=== PATIENT | male | born 1955 | race Caucasian/White ===

== ENCOUNTER 2022-08-27 09:52 | Day surgery (SDC) | payer MEDICARE ==
[2022-08-23 08:56] VITALS: BMI 25.8
[2022-08-27] MEDS ORDERED: fentaNYL Citrate/PF 100 MCG/2 ML SYRINGE ONE (11:31)
[2022-08-27] MEDS ORDERED: CEFAZOLIN 2 GM VIAL ONE (12:07)
[2022-08-27] MEDS ORDERED: Sodium Chloride 0.9% 100 ML ONE (12:07)
[2022-08-27] MEDS ORDERED: Dexamethasone 20 MG/5 ML VIAL ONE (12:18)
[2022-08-27] MEDS ORDERED: Ondansetron PF 4 MG/2 ML Vial ONE (12:18)
[2022-08-27] MEDS ORDERED: Rocuronium Bromide 10 MG/ML (10ML VIAL) ONE (12:18)
[2022-08-27] MEDS ORDERED: PROPOFOL 200 MG/20 ML VIAL ONE (12:18)
[2022-08-27] MEDS ORDERED: Lidocaine 1% MPF 2 ML VIAL ONE (12:18)
[2022-08-27] MEDS ORDERED: NEOSTIGMINE 3 MG/3 ML SYR 3 MG/3 ML SYRINGE ONE (12:18)
[2022-08-27] MEDS ORDERED: Glycopyrrolate 0.2 MG/ML 5 ML SYRINGE ONE (12:18)
[2022-08-27] MEDS ORDERED: Fentanyl 100 MCG/2 ML VIAL ONE (14:33)
[2022-09-01 08:10] LABS: Color Orange (.); Stone Weight 4340 mg (.); Uric Acid 100 % (.)
== END 2022-08-27 16:10 | disposition home or self-care (01) ==
LOC: SDC 09:52
PROVIDERS: ATTEND Urology
PROC: 0TCB8ZZ Extirpation of Matter from Bladder, Via Natural or Artificial Opening Endoscopic (ICD-10-PCS; principal; 2022-08-27)
DX: N21.0 Calculus in bladder (principal); I10 Essential (primary) hypertension; E78.5 Hyperlipidemia, unspecified; N40.0 Benign prostatic hyperplasia without lower urinary tract symptoms; Z79.899 Other long term (current) drug therapy; Z88.5 Allergy status to narcotic agent
CPT/HCPCS: 82365; 88300; J0690; J1100; J2405; J2704; J3010; J3490